=== PATIENT | male | born 1975 ===

== ENCOUNTER 2018-07-11 18:29 | Emergency (ER) | payer BC ==
[2018-07-11 19:59] VITALS: BP 133/86; PULSE 72; RESP 20; TEMP 98.1; O2SAT 97
--- NOTE | 2018-07-11 20:06 | C.PDOC ---
History Of Present Illness 43 year old male presents to the ED for evaluation of worsening pain and swelling to the right thumb for 3 days. Patient reports the pain has been worse today and noticed yellow discoloration, redness, and swelling extending up to the right hand. He notes having callous for a few weeks in the same area which he believes has not healed. Denies fever, nausea, vomiting, discharge, numbness, tingling, and any other associated symptoms. Time Seen by Provider: 07/11/18 19:17 Chief Complaint (Nursing): Upper Extremity Problem/Injury History Per: Patient History/Exam Limitations: no limitations Onset/Duration Of Symptoms: Days Current Symptoms Are (Timing): Still Present Past Medical History Reviewed: Historical Data, Nursing Documentation, Vital Signs Vital Signs: Last Vital Signs Temp 98.1 F 07/11/18 19:59 Pulse 72 07/11/18 19:59 Resp 20 07/11/18 19:59 BP 133/86 07/11/18 19:59 Pulse Ox 97 07/11/18 19:59 - Medical History PMH: Hypercholesterolemia Denies: Diabetes, Hepatitis, HIV, HTN, Seizures, Sexually Transmitted Disease Family History: States: Unknown Family Hx - Social History Hx Alcohol Use: No Hx Substance Use: No - Immunization History Hx Tetanus Toxoid Vaccination: Yes (LAST YEAR) Hx Influenza Vaccination: No Review Of Systems Constitutional: Negative for: Fever Gastrointestinal: Negative for: Nausea, Vomiting Musculoskeletal: Positive for: Other (pain and swelling to the right thumb. yellow discoloration, redness, and swelling extending up to the right hand.) Neurological: Negative for: Weakness, Numbness, Incoordination Physical Exam - Physical Exam Appears: Well, Non-toxic, No Acute Distress Skin: Normal Color, Warm, Dry, Other (right tumb: (+) tender. (+) fluctuant. (+) erythematous mass to the IP joint of right thumb. callous at the center. (+) linear streaking along the dorsal space to right thumb and hand.) Head: Atraumatic, Normacephalic Eye(s): bilateral: Normal Inspection ED Course And Treatment O2 Sat by Pulse Oximetry: 97 (RA) Pulse Ox Interpretation: Normal Progress Note: Plan: Motrin. Progress/Update: I&D: abscess drained, dressing applied. Patient advised on wound care. Advised to follow up in the ED within 2 days. Patient stable for discharge home. - Incision & Drainage Of Abscess Anesthesia: Lidocaine 1% Prep Used: Betadine Procedure: Incised W/Scalpel Blade#: (15), Drained Pus, Irrigated Cavity W/Saline, Probed To Break Up Loculations, Packed W/Gauze (Pt tolerated well) Disposition Counseled Patient/Family Regarding: Diagnosis, Need For Followup, Rx Given - Disposition Referrals: [facility] [Outside] [facility] [Outside] Disposition: HOME/ ROUTINE Disposition Time: 20:05 Condition: STABLE Additional Instructions: Please follow up with PMD in 2 days or in ED for wound check Take medications as directed Tylenol and motrin for pain Follow wound care instructions Return to ER if fever, increase swelling , redness or worse Prescriptions: Cephalexin [cephalexin] 500 mg PO QID #20 cap Sulfamethoxazole/Trimethoprim [Bactrim DS 800 mg-160 mg] 1 tab PO BID #14 tab Instructions: Cellulitis (Skin Infection), Child (DC), Abscess Incision and Drainage (DC) Forms: [employer] (Macedonian) - Clinical Impression Clinical Impression: Cellulitis, Abscess of finger - PA / SENIOR JAVASCRIPT ENGINEER / Resident Statement MD/DO has reviewed & agrees with the documentation as recorded. - Scribe Statement The provider has reviewed the documentation as recorded by the Scribe (Noa Bland) All medical record entries made by the Scribe were at my direction and personally dictated by me. I have reviewed the chart and agree that the record accurately reflects my personal performance of the history, physical exam, medical decision making, and the department course for this patient. I have also personally directed, reviewed, and agree with the discharge instructions and disposition.
== END 2018-07-11 20:24 | disposition home or self-care (01) ==
LOC: C.ER 18:29
DX: L03.011 Cellulitis of right finger (principal); L02.511 Cutaneous abscess of right hand

== ENCOUNTER 2018-07-12 17:43 | Emergency (ER) | payer BC ==
[2018-07-12 17:48] VITALS: BP 127/96; PULSE 114; RESP 18; TEMP 98; O2SAT 99
--- NOTE | 2018-07-12 18:38 | C.PDOC ---
History Of Present Illness 43 year old male presents to the ED for wound check on the right thumb s/p I&D done 1 day ago in the ED. Patient reports he has not followed up with his PCP in [place] and notes he did not want to remove the bandage fearing dust will infect the wound. Denies fever, nausea, vomiting, discharge, increase in pain, numbness, tingling, swelling, and any other associated symptoms. Time Seen by Provider: 07/12/18 18:22 Chief Complaint (Nursing): Wound Check History Per: Patient History/Exam Limitations: no limitations Past Medical History Reviewed: Historical Data, Nursing Documentation, Vital Signs Vital Signs: Last Vital Signs Temp 98 F 07/12/18 17:45 Pulse 114 H 07/12/18 17:45 Resp 18 07/12/18 17:45 BP 127/96 H 07/12/18 17:45 Pulse Ox 99 07/12/18 17:45 - Medical History PMH: Hypercholesterolemia Denies: Diabetes, Hepatitis, HIV, HTN, Seizures, Sexually Transmitted Disease Family History: States: Unknown Family Hx - Social History Hx Alcohol Use: No Hx Substance Use: No - Immunization History Hx Tetanus Toxoid Vaccination: Yes (LAST YEAR) Hx Influenza Vaccination: No Review Of Systems Constitutional: Negative for: Fever Gastrointestinal: Negative for: Nausea, Vomiting Skin: Negative for: Other ((-) swelling to the right thumb. (-) discharge. ) Neurological: Negative for: Weakness, Numbness, Incoordination Physical Exam - Physical Exam Appears: Well, Non-toxic, No Acute Distress Skin: Normal Color, Warm, Dry, Other (right thumb: (+) center of first phalanx has wound with packing. (-) discharge. (-) surrounding erythema.) Head: Atraumatic, Normacephalic Eye(s): bilateral: Normal Inspection, PERRL, EOMI Extremity: Normal ROM (of the right thumb. ), Capillary Refill (less than 2 seconds.), No Deformity, No Swelling Pulses: Right Radial: Normal Neurological/Psych: Oriented x3, Normal Speech, Normal Motor, Normal Sensation, Normal Reflexes ED Course And Treatment O2 Sat by Pulse Oximetry: 99 (RA) Pulse Ox Interpretation: Normal Medical Decision Making Medical Decision Making: Progress/Update: Right thumb wound was rewrapped. Stable for discharge home. Patient advised to follow up in 1-2. Disposition Counseled Patient/Family Regarding: Diagnosis, Need For Followup - Disposition Disposition: HOME/ ROUTINE Condition: GOOD Additional Instructions: MARY BETH HUBBARD, thank you for letting us take care of you today. Your provider was Dulce Cho MD and you were treated for RT FINGER CHECKUP. The emergency medical care you received today was directed at your acute symptoms. If you were prescribed any medication, please fill it and take as directed. It may take several days for your symptoms to resolve. Return to the Emergency Department if your symptoms worsen, do not improve, or if you have any other problems. Please return to the Emergency Department in 1 days for wound check. Bring any paperwork you were given at discharge with you along with any medications you are taking to your follow up visit. Our treatment cannot replace ongoing medical care by a primary care provider outside of the emergency department. Thank you for allowing the [facility] team to be part of your care today. Instructions: Wound Care (DC) Forms: [employer] (Polish), General Discharge Instructions - POA Present On Arrival: None - Clinical Impression Clinical Impression: Visit for wound check - Scribe Statement The provider has reviewed the documentation as recorded by the Scribe (Noa Bland) Provider Attestation: All medical record entries made by the Scribe were at my direction and personally dictated by me. I have reviewed the chart and agree that the record accurately reflects my personal performance of the history, physical exam, medical decision making, and the department course for this patient. I have also personally directed, reviewed, and agree with the discharge instructions and disposition.
== END 2018-07-12 18:41 | disposition home or self-care (01) ==
LOC: C.ER 17:43
DX: Z48.00 Encounter for change or removal of nonsurgical wound dressing (principal); E78.00 Pure hypercholesterolemia, unspecified